=== PATIENT | female | born 1950 | race Caucasian/White ===

== ENCOUNTER 2022-10-30 12:20 | Emergency (ER) | payer OTHER ==
[~2022-10-30] VITALS: Ht 165.1 cm; Wt 105.0 kg
[2022-10-30] MEDS ORDERED: methylPREDNISolone SOD SUCC 125 MG/2 ML VL IM ONE (13:00)
[2022-10-30 13:37] LABS: Basophils # (auto) 0 10 ^3/uL (0-0.2); Basophils % (auto) 0.4 % (0.0-2.0); Eosinophils # (auto) 0.1 10 ^3/uL (0-0.8); Eosinophils % (auto) 1.4 % (0.0-7.0); Hematocrit 35.9 % (36.0-46.0); Hemoglobin 12.1 g/dL (12.2-16.2); Lymphocytes # (auto) 1.5 10 ^3/uL (0.4-5.4); Lymphocytes % (auto) 28.2 % (10.0-50.0); Mean Corpuscular Hgb Conc. 33.6 g/dL (32.0-36.0); Mean Corpuscular Volume 95.3 fL (80.0-100.0); Monocytes # (auto) 0.4 10 ^3/uL (0-1.3); Monocytes % (auto) 7.3 % (0.0-12.0); Neutrophils # (auto) 3.3 10 ^3/uL (1.6-8.6); Neutrophils % (auto) 62.7 % (37.0-80.0); Nucleated Red Blood Cells % 0.1 %; Red Blood Cells 3.77 10^6/uL (4.0-5.20); White Blood Cell 5.3 10^3/uL (4.4-10.8)
[2022-10-30] MEDS ORDERED: cefTRIAXone 1GM/50ML D5W 50 ML IV ONE (13:45)
[2022-10-30] MEDS ORDERED: AZITHROMYCIN 500MG/ 250ML 250 ML IV ONE (13:45)
[2022-10-30 14:09] LABS: Albumin 3.8 g/dL (3.4-5.0); Calcium 8.7 mg/dL (8.5-10.1); Potassium 4.6 mmol/L (3.5-5.1)
[2022-10-30 14:14] LABS: BUN/Creatinine Ratio 18.4; Bilirubin, Total 0.3 mg/dL (0.2-1.0); Total Protein 7.8 g/dL (6.4-8.2)
[2022-10-30] MEDS ORDERED: LEVO-28 PO (14:30)
[2022-10-30] MEDS ORDERED: PRED20TA2 PO (14:30)
[2022-10-30] MEDS ORDERED: methylPREDNISolone SOD SUCC 125 MG/2 ML VL IV ONE (17:15)
[2022-10-30 18:04] VITALS: BP 107/83
== END 2022-10-30 20:37 | disposition home or self-care (01) ==
LOC: ER 12:20
DX: U07.1 COVID-19 (principal); J18.9 Pneumonia, unspecified organism; R07.89 Other chest pain; Z90.49 Acquired absence of other specified parts of digestive tract
CPT/HCPCS: 36415; 71045; 80053; 83880; 84484; 85025; 85379; 87426; 87804; 93005; 96365; 96366; 96368; 96375; 99285; J0456; J0696; J2930

== ENCOUNTER 2022-12-03 09:55 | Inpatient (IN) | payer OTHER ==
[~2022-12-03] VITALS: Ht 165.1 cm; Wt 93.8 kg
[~2022-12-03 09:55] MED LIST: LEVO-28 PO; PRED20TA2 PO
[2022-12-03 11:02] LABS: Basophils # (auto) 0.2 10 ^3/uL (0-0.2); Basophils % (auto) 0.9 % (0.0-2.0); Eosinophils # (auto) 1.3 10 ^3/uL (0-0.8); Eosinophils % (auto) 7.9 % (0.0-7.0); Hematocrit 32.9 % (36.0-46.0); Hemoglobin 10.6 g/dL (12.2-16.2); Lymphocytes % (auto) 11.9 % (10.0-50.0); Mean Corpuscular Hgb Conc. 32.2 g/dL (32.0-36.0); Mean Corpuscular Volume 96.2 fL (80.0-100.0); Monocytes # (auto) 0.8 10 ^3/uL (0-1.3); Monocytes % (auto) 4.7 % (0.0-12.0); Neutrophils # (auto) 12.4 10 ^3/uL (1.6-8.6); Neutrophils % (auto) 74.6 % (37.0-80.0); Red Blood Cells 3.42 10^6/uL (4.0-5.20); Red Cell Distribution Width 13.5 % (11.8-14.3); White Blood Cell 16.5 10^3/uL (4.4-10.8)
[2022-12-03 11:27] LABS: Albumin 3.1 g/dL (3.4-5.0); Calcium 8.5 mg/dL (8.5-10.1); Potassium 3.7 mmol/L (3.5-5.1)
[2022-12-03 11:30] LABS: Bilirubin, Total 0.5 mg/dL (0.2-1.0); Total Protein 7.1 g/dL (6.4-8.2)
[2022-12-03] MEDS ORDERED: FUROSEMIDE 20 MG/2 ML VIAL IV ONE (12:00)
[2022-12-03] MEDS ORDERED: DexAMETHasone SOD PHOS 10MG/1ML VIAL INJ IV ONE (12:00)
[2022-12-03] MEDS ORDERED: IPRATROPIUM BROM 0.5 MG/2.5ML INH SOL NEB ONE (12:00)
[2022-12-03] MEDS ORDERED: VANCOMYCIN 1GM/250ML 250 ML IV ONE (12:00)
[2022-12-03] MEDS ORDERED: ALBUTEROL MEDNEB 2.5 mg/3ml NEB NEB ONE (12:00)
[2022-12-03] MEDS ORDERED: IOHEXOL 350 MG/ML 100ML IJ ONE (12:06)
[2022-12-03] MEDS: MAGNESIUM SULFATE 1GM/100ML 100 ML IV SCH ×2 (12:54→13:58)
[2022-12-03] MEDS: CEFEPIME 1GM/ 50ML 50 ML IV ONE ×2 (14:03→15:11)
[2022-12-03] MEDS ORDERED: VANCOMYCIN PER PHARMACY 0 MG IV SCH (15:45)
[2022-12-03] MEDS ORDERED: methylPREDNISolone SOD SUCC 125 MG/2 ML VL IV ONE (15:45)
[2022-12-03] MEDS ORDERED: hydrALAZINE HCL 20 MG/ML VL IV PRN (15:45)
[2022-12-03] MEDS ORDERED: NITROGLYCERIN 0.4 MG SL TAB SL PRN (15:45)
[2022-12-03 16:00] LABS: Urine Bacteria NONE SEEN /hpf (None Seen); Urine Blood Negative /uL (Negative); Urine Mucus FEW (None Seen); Urine Specific Gravity 1.022 (1.001-1.035); Urine WBC 1 /hpf (0 - 5)
[2022-12-03] MEDS ORDERED: ALBUTEROL MEDNEB 2.5 mg/3ml NEB ONE ×2 (18:07→21:40)
[2022-12-03] MEDS: ALBUTEROL SULF 2.5 MG/0.5ML(0.5%) NEB SOLN NEB SCH ×2 (18:51→22:17)
[2022-12-03] MEDS: PIPERACILLIN-TAZOB 3.375GM 100 ML IV SCH (19:07)
[2022-12-03] MEDS: FUROSEMIDE 40 MG/4 ML VIAL IV SCH (19:07)
[2022-12-03] MEDS ORDERED: METO-281 PO (19:42)
[2022-12-03] MEDS ORDERED: GABA300C10 PO (19:42)
[2022-12-03] MEDS ORDERED: HYDR-4902 PO (19:42)
[2022-12-03] MEDS ORDERED: QUET200T45 PO (19:42)
[2022-12-03] MEDS ORDERED: CLON0.5T10 PO (19:42)
[2022-12-03] MEDS ORDERED: PANT40TA2 PO (19:42)
[2022-12-03] MEDS ORDERED: SERT50TA19 PO (19:42)
[2022-12-03 20:33] VITALS: BP 122/54
[2022-12-03 21:45] VITALS: BP 120/78
[2022-12-03] MEDS: GABAPENTIN 300 MG CAP PO SCH (21:55)
[2022-12-03] MEDS: clonazePAM 0.5 MG TAB PO SCH (21:55)
[2022-12-03] MEDS: QUEtiapine FUMARATE 100 MG TAB PO SCH (21:56)
[2022-12-04] VITALS (7 sets, daily range): BP systolic 95–112; BP diastolic 46–60
[2022-12-04] MEDS: PIPERACILLIN-TAZOB 3.375GM 100 ML IV SCH ×4 (00:41→18:14)
[2022-12-04] MEDS: methylPREDNISolone SOD SUCC 40 MG/ML VL IV SCH ×4 (00:41→18:14)
[2022-12-04] MEDS: clonazePAM 0.5 MG TAB PO SCH ×3 (05:53→21:28)
[2022-12-04] MEDS ORDERED: ALBUTEROL MEDNEB 2.5 mg/3ml NEB ONE ×6 (05:57→22:17)
[2022-12-04] MEDS: FUROSEMIDE 40 MG/4 ML VIAL IV SCH ×3 (06:00→18:55)
[2022-12-04] MEDS: VANCOMYCIN 1GM/250ML 250 ML IV SCH ×2 (06:03→21:28)
[2022-12-04 06:17] LABS: Basophils # (auto) 0 10 ^3/uL (0-0.2); Basophils % (auto) 0.1 % (0.0-2.0); Eosinophils # (auto) 0 10 ^3/uL (0-0.8); Hematocrit 32.2 % (36.0-46.0); Hemoglobin 10.5 g/dL (12.2-16.2); Lymphocytes % (auto) 5.1 % (10.0-50.0); Mean Corpuscular Hemoglobin 31.3 pg (28.0-32.0); Mean Corpuscular Hgb Conc. 32.8 g/dL (32.0-36.0); Mean Corpuscular Volume 95.5 fL (80.0-100.0); Monocytes # (auto) 0.5 10 ^3/uL (0-1.3); Monocytes % (auto) 2.9 % (0.0-12.0); Neutrophils # (auto) 17.1 10 ^3/uL (1.6-8.6); Neutrophils % (auto) 91.9 % (37.0-80.0); Red Blood Cells 3.37 10^6/uL (4.0-5.20); Red Cell Distribution Width 13.4 % (11.8-14.3); White Blood Cell 18.7 10^3/uL (4.4-10.8)
[2022-12-04] MEDS: ALBUTEROL SULF 2.5 MG/0.5ML(0.5%) NEB SOLN NEB SCH ×4 (06:54→18:19)
[2022-12-04 07:59] LABS: Potassium 3.7 mmol/L (3.5-5.1)
[2022-12-04 08:00] LABS: Calcium 8.5 mg/dL (8.5-10.1)
[2022-12-04] MEDS ORDERED: ALBUTEROL SULF 2.5 MG/0.5ML(0.5%) NEB SOLN NEB PRN (08:45)
[2022-12-04] MEDS: SERTRALINE HCL 50 MG TAB PO SCH (09:37)
[2022-12-04] MEDS: guaiFENesin 200 MG/10 ML UD GT PRN ×2 (09:37→22:08)
[2022-12-04] MEDS: ENOXAPARIN SOD 40 MG/0.4 ML SYRINGE SC SCH (09:37)
[2022-12-04] MEDS ORDERED: QUEtiapine FUMARATE 100 MG TAB PO SCH (10:00)
[2022-12-04] MEDS ORDERED: GABAPENTIN 300 MG CAP PO SCH (10:00)
[2022-12-04] MEDS ORDERED: methylPREDNISolone SOD SUCC 125 MG/2 ML VL IV ONE (18:30)
[2022-12-04] MEDS: QUEtiapine FUMARATE 100 MG TAB PO SCH (21:28)
[2022-12-04] MEDS: GABAPENTIN 300 MG CAP PO SCH (21:28)
[2022-12-04] MEDS ORDERED: ONDANSETRON HCL 4 MG/2 ML VIAL IV PRN (22:00)
[2022-12-05] VITALS (8 sets, daily range): BP systolic 91–125; BP diastolic 54–80
[2022-12-05] MEDS: ALBUTEROL SULF 2.5 MG/0.5ML(0.5%) NEB SOLN NEB SCH ×6 (00:14→21:28)
[2022-12-05] MEDS: PIPERACILLIN-TAZOB 3.375GM 100 ML IV SCH ×4 (00:18→17:39)
[2022-12-05] MEDS: methylPREDNISolone SOD SUCC 125 MG/2 ML VL IV SCH ×4 (00:19→17:38)
[2022-12-05] MEDS: clonazePAM 0.5 MG TAB PO SCH ×3 (05:28→21:13)
[2022-12-05] MEDS ORDERED: ALBUTEROL MEDNEB 2.5 mg/3ml NEB ONE ×5 (06:13→21:14)
[2022-12-05 06:17] LABS: Basophils # (auto) 0.1 10 ^3/uL (0-0.2); Basophils % (auto) 0.3 % (0.0-2.0); Eosinophils # (auto) 0 10 ^3/uL (0-0.8); Eosinophils % (auto) 0.1 % (0.0-7.0); Hematocrit 33.5 % (36.0-46.0); Hemoglobin 10.7 g/dL (12.2-16.2); Lymphocytes # (auto) 1.1 10 ^3/uL (0.4-5.4); Lymphocytes % (auto) 4.3 % (10.0-50.0); Mean Corpuscular Hemoglobin 30.6 pg (28.0-32.0); Mean Corpuscular Volume 95.7 fL (80.0-100.0); Monocytes # (auto) 0.7 10 ^3/uL (0-1.3); Monocytes % (auto) 2.9 % (0.0-12.0); Neutrophils # (auto) 22.5 10 ^3/uL (1.6-8.6); Neutrophils % (auto) 92.4 % (37.0-80.0); Nucleated Red Blood Cells % 0.1 %; Red Cell Distribution Width 13.7 % (11.8-14.3); White Blood Cell 24.4 10^3/uL (4.4-10.8)
[2022-12-05 06:36] LABS: BUN/Creatinine Ratio 29.5; Calcium 9.8 mg/dL (8.5-10.1)
[2022-12-05] MEDS: ENOXAPARIN SOD 40 MG/0.4 ML SYRINGE SC SCH (10:14)
[2022-12-05] MEDS: SERTRALINE HCL 50 MG TAB PO SCH (10:14)
[2022-12-05] MEDS: VANCOMYCIN 1GM/250ML 250 ML IV SCH (14:06)
[2022-12-05] MEDS: FUROSEMIDE 40 MG/4 ML VIAL IV SCH (17:38)
[2022-12-05] MEDS: QUEtiapine FUMARATE 100 MG TAB PO SCH (21:13)
[2022-12-05] MEDS: GABAPENTIN 300 MG CAP PO SCH (21:13)
[2022-12-06] VITALS (12 sets, daily range): BP systolic 88–135; BP diastolic 40–74
[2022-12-06] MEDS: methylPREDNISolone SOD SUCC 125 MG/2 ML VL IV SCH ×4 (00:25→18:07)
[2022-12-06] MEDS: PIPERACILLIN-TAZOB 3.375GM 100 ML IV SCH ×4 (00:31→18:07)
[2022-12-06] MEDS: VANCOMYCIN 1GM/250ML 250 ML IV SCH (05:11)
[2022-12-06] MEDS: FUROSEMIDE 40 MG/4 ML VIAL IV SCH ×2 (05:12→18:08)
[2022-12-06] MEDS: clonazePAM 0.5 MG TAB PO SCH ×3 (05:13→21:50)
[2022-12-06 06:34] LABS: Basophils # (auto) 0 10 ^3/uL (0-0.2); Basophils % (auto) 0.2 % (0.0-2.0); Eosinophils # (auto) 0 10 ^3/uL (0-0.8); Hematocrit 33.1 % (36.0-46.0); Hemoglobin 10.6 g/dL (12.2-16.2); Lymphocytes # (auto) 1.5 10 ^3/uL (0.4-5.4); Lymphocytes % (auto) 6.8 % (10.0-50.0); Mean Corpuscular Hemoglobin 30.7 pg (28.0-32.0); Mean Corpuscular Volume 95.9 fL (80.0-100.0); Monocytes # (auto) 1.2 10 ^3/uL (0-1.3); Monocytes % (auto) 5.4 % (0.0-12.0); Neutrophils # (auto) 19.2 10 ^3/uL (1.6-8.6); Neutrophils % (auto) 87.6 % (37.0-80.0); Red Blood Cells 3.45 10^6/uL (4.0-5.20); Red Cell Distribution Width 13.6 % (11.8-14.3); White Blood Cell 21.9 10^3/uL (4.4-10.8)
[2022-12-06 06:42] LABS: BUN/Creatinine Ratio 41.9; Calcium 9.9 mg/dL (8.5-10.1); Potassium 3.7 mmol/L (3.5-5.1)
[2022-12-06] MEDS: ALBUTEROL SULF 2.5 MG/0.5ML(0.5%) NEB SOLN NEB SCH ×5 (07:19→22:21)
[2022-12-06] MEDS ORDERED: ALBUTEROL MEDNEB 2.5 mg/3ml NEB ONE ×5 (07:19→21:56)
[2022-12-06] MEDS: guaiFENesin 200 MG/10 ML UD GT PRN (09:28)
[2022-12-06] MEDS: ENOXAPARIN SOD 40 MG/0.4 ML SYRINGE SC SCH (09:28)
[2022-12-06] MEDS: SERTRALINE HCL 50 MG TAB PO SCH (09:28)
[2022-12-06] MEDS: LORazepam 2MG/ML-1ML VIAL IV PRN (12:00)
[2022-12-06] MEDS: ACETAMINOPHEN 325 MG TAB PO PRN (18:44)
[2022-12-06] MEDS: QUEtiapine FUMARATE 100 MG TAB PO SCH (21:51)
[2022-12-06] MEDS: GABAPENTIN 300 MG CAP PO SCH (21:51)
[2022-12-07] VITALS (30 sets, daily range): BP systolic 15–140; BP diastolic 41–76
[2022-12-07] MEDS: VANCOMYCIN 1GM/250ML 250 ML IV SCH ×3 (00:15→18:33)
[2022-12-07] MEDS: methylPREDNISolone SOD SUCC 125 MG/2 ML VL IV SCH ×5 (00:16→23:31)
[2022-12-07] MEDS: PIPERACILLIN-TAZOB 3.375GM 100 ML IV SCH ×5 (00:16→23:32)
[2022-12-07] MEDS ORDERED: ALBUTEROL MEDNEB 2.5 mg/3ml NEB ONE ×5 (05:25→22:01)
[2022-12-07] MEDS: ALBUTEROL SULF 2.5 MG/0.5ML(0.5%) NEB SOLN NEB SCH ×5 (05:48→22:16)
[2022-12-07] MEDS: FUROSEMIDE 40 MG/4 ML VIAL IV SCH ×2 (06:04→18:32)
[2022-12-07 06:05] LABS: Basophils # (auto) 0.1 10 ^3/uL (0-0.2); Basophils % (auto) 0.3 % (0.0-2.0); Eosinophils # (auto) 0 10 ^3/uL (0-0.8); Hematocrit 32.6 % (36.0-46.0); Hemoglobin 10.6 g/dL (12.2-16.2); Lymphocytes # (auto) 1.5 10 ^3/uL (0.4-5.4); Lymphocytes % (auto) 8.4 % (10.0-50.0); Mean Corpuscular Hemoglobin 30.4 pg (28.0-32.0); Mean Corpuscular Hgb Conc. 32.7 g/dL (32.0-36.0); Monocytes # (auto) 1.1 10 ^3/uL (0-1.3); Monocytes % (auto) 6.2 % (0.0-12.0); Neutrophils # (auto) 15.5 10 ^3/uL (1.6-8.6); Neutrophils % (auto) 85.1 % (37.0-80.0); Nucleated Red Blood Cells % 0.1 %; Red Cell Distribution Width 13.4 % (11.8-14.3); White Blood Cell 18.2 10^3/uL (4.4-10.8)
[2022-12-07] MEDS: clonazePAM 0.5 MG TAB PO SCH ×3 (06:10→20:32)
[2022-12-07 06:24] LABS: Calcium 9.5 mg/dL (8.5-10.1)
[2022-12-07 06:26] LABS: BUN/Creatinine Ratio 50.5
[2022-12-07] MEDS: ENOXAPARIN SOD 40 MG/0.4 ML SYRINGE SC SCH (09:44)
[2022-12-07] MEDS: SERTRALINE HCL 50 MG TAB PO SCH (09:46)
[2022-12-07] MEDS ORDERED: IPRATROPIUM BROM 0.5 MG/2.5ML INH SOL ONE (18:39)
[2022-12-07] MEDS: QUEtiapine FUMARATE 100 MG TAB PO SCH (20:32)
[2022-12-07] MEDS: GABAPENTIN 300 MG CAP PO SCH (20:32)
[2022-12-08] VITALS (30 sets, daily range): BP systolic 85–135; BP diastolic 51–84
[2022-12-08] MEDS: PIPERACILLIN-TAZOB 3.375GM 100 ML IV SCH ×3 (05:40→18:11)
[2022-12-08] MEDS: methylPREDNISolone SOD SUCC 125 MG/2 ML VL IV SCH ×3 (05:40→18:10)
[2022-12-08] MEDS: FUROSEMIDE 40 MG/4 ML VIAL IV SCH ×2 (05:40→18:10)
[2022-12-08] MEDS: clonazePAM 0.5 MG TAB PO SCH ×3 (05:41→21:46)
[2022-12-08] MEDS ORDERED: ALBUTEROL MEDNEB 2.5 mg/3ml NEB ONE ×3 (05:46→13:21)
[2022-12-08 05:51] LABS: Basophils # (auto) 0.1 10 ^3/uL (0-0.2); Basophils % (auto) 0.3 % (0.0-2.0); Eosinophils # (auto) 0 10 ^3/uL (0-0.8); Hematocrit 35.7 % (36.0-46.0); Hemoglobin 11.7 g/dL (12.2-16.2); Lymphocytes # (auto) 1.9 10 ^3/uL (0.4-5.4); Mean Corpuscular Hemoglobin 30.2 pg (28.0-32.0); Mean Corpuscular Hgb Conc. 32.7 g/dL (32.0-36.0); Mean Corpuscular Volume 92.5 fL (80.0-100.0); Monocytes # (auto) 1.1 10 ^3/uL (0-1.3); Monocytes % (auto) 5.7 % (0.0-12.0); Neutrophils # (auto) 15.7 10 ^3/uL (1.6-8.6); Red Blood Cells 3.86 10^6/uL (4.0-5.20); Red Cell Distribution Width 13.4 % (11.8-14.3); White Blood Cell 18.7 10^3/uL (4.4-10.8)
[2022-12-08 06:13] LABS: Calcium 9.3 mg/dL (8.5-10.1)
[2022-12-08 06:15] LABS: BUN/Creatinine Ratio 47.6
[2022-12-08] MEDS: ALBUTEROL SULF 2.5 MG/0.5ML(0.5%) NEB SOLN NEB SCH ×3 (06:15→13:22)
[2022-12-08] MEDS: VANCOMYCIN 1GM/250ML 250 ML IV SCH (09:32)
[2022-12-08] MEDS: SERTRALINE HCL 50 MG TAB PO SCH (09:32)
[2022-12-08] MEDS: ENOXAPARIN SOD 40 MG/0.4 ML SYRINGE SC SCH (09:33)
[2022-12-08] MEDS: ALBUTEROL MEDNEB 2.5 mg/3ml NEB NEB SCH ×4 (14:00→22:12)
[2022-12-08] MEDS ORDERED: ALBUTEROL MEDNEB 2.5 mg/3ml NEB NEB PRN (14:00)
[2022-12-08] MEDS: guaiFENesin 200 MG/10 ML UD GT PRN (20:44)
[2022-12-08] MEDS: QUEtiapine FUMARATE 100 MG TAB PO SCH (21:45)
[2022-12-08] MEDS: GABAPENTIN 300 MG CAP PO SCH (21:45)
[2022-12-09] VITALS (32 sets, daily range): BP systolic 93–125; BP diastolic 54–85
[2022-12-09] MEDS: methylPREDNISolone SOD SUCC 125 MG/2 ML VL IV SCH ×4 (00:09→18:13)
[2022-12-09] MEDS: PIPERACILLIN-TAZOB 3.375GM 100 ML IV SCH ×4 (00:09→18:13)
[2022-12-09] MEDS: VANCOMYCIN 1GM/250ML 250 ML IV SCH (01:28)
[2022-12-09] MEDS: LORazepam 2MG/ML-1ML VIAL IV PRN ×2 (05:00→13:55)
[2022-12-09 05:19] LABS: Basophils # (auto) 0.1 10 ^3/uL (0-0.2); Basophils % (auto) 0.3 % (0.0-2.0); Eosinophils # (auto) 0 10 ^3/uL (0-0.8); Lymphocytes # (auto) 1.8 10 ^3/uL (0.4-5.4); Lymphocytes % (auto) 9.9 % (10.0-50.0); Mean Corpuscular Volume 91.9 fL (80.0-100.0); Neutrophils # (auto) 15.7 10 ^3/uL (1.6-8.6); White Blood Cell 18.6 10^3/uL (4.4-10.8)
[2022-12-09 05:20] LABS: Hematocrit 34.6 % (36.0-46.0); Hemoglobin 11.6 g/dL (12.2-16.2); Mean Corpuscular Hemoglobin 30.8 pg (28.0-32.0); Mean Corpuscular Hgb Conc. 33.6 g/dL (32.0-36.0); Monocytes # (auto) 0.9 10 ^3/uL (0-1.3); Monocytes % (auto) 5.1 % (0.0-12.0); Neutrophils % (auto) 84.7 % (37.0-80.0); Red Blood Cells 3.77 10^6/uL (4.0-5.20); Red Cell Distribution Width 13.6 % (11.8-14.3)
[2022-12-09 05:38] LABS: BUN/Creatinine Ratio 40.9; Calcium 9.3 mg/dL (8.5-10.1); Potassium 3.2 mmol/L (3.5-5.1)
[2022-12-09] MEDS: clonazePAM 0.5 MG TAB PO SCH ×3 (06:09→21:29)
[2022-12-09] MEDS: FUROSEMIDE 40 MG/4 ML VIAL IV SCH ×2 (06:10→18:14)
[2022-12-09] MEDS: guaiFENesin 200 MG/10 ML UD GT PRN ×2 (06:21→20:30)
[2022-12-09] MEDS: ALBUTEROL MEDNEB 2.5 mg/3ml NEB NEB SCH ×6 (06:38→22:01)
[2022-12-09] MEDS: POTASSIUM CHL 20MEQ/100ML 100 ML IV SCH ×2 (06:40→08:35)
[2022-12-09] MEDS: ACETAMINOPHEN 325 MG TAB PO PRN (08:52)
[2022-12-09] MEDS: ENOXAPARIN SOD 40 MG/0.4 ML SYRINGE SC SCH (10:26)
[2022-12-09] MEDS: SERTRALINE HCL 50 MG TAB PO SCH (10:26)
[2022-12-09] MEDS ORDERED: SODIUM CHL 3% HYPERTONIC 500 ML BAG IN ONE (14:00)
[2022-12-09] MEDS: AZITHROMYCIN 500MG/ 250ML 250 ML IV SCH (15:14)
[2022-12-09] MEDS: GABAPENTIN 300 MG CAP PO SCH (21:29)
[2022-12-09] MEDS: QUEtiapine FUMARATE 100 MG TAB PO SCH (21:29)
[2022-12-10] VITALS (26 sets, daily range): BP systolic 86–129; BP diastolic 41–88
[2022-12-10 05:26] LABS: Basophils # (auto) 0.1 10 ^3/uL (0-0.2); Eosinophils # (auto) 0 10 ^3/uL (0-0.8); Eosinophils % (auto) 0.1 % (0.0-7.0); Monocytes # (auto) 1.2 10 ^3/uL (0-1.3)
[2022-12-10 05:29] LABS: Basophils % (auto) 0.3 % (0.0-2.0); Hematocrit 35.6 % (36.0-46.0); Hemoglobin 11.8 g/dL (12.2-16.2); Lymphocytes % (auto) 8.2 % (10.0-50.0); Mean Corpuscular Hemoglobin 30.6 pg (28.0-32.0); Mean Corpuscular Hgb Conc. 33.2 g/dL (32.0-36.0); Mean Corpuscular Volume 92.1 fL (80.0-100.0); Monocytes % (auto) 5.2 % (0.0-12.0); Neutrophils # (auto) 20.4 10 ^3/uL (1.6-8.6); Neutrophils % (auto) 86.2 % (37.0-80.0); Red Blood Cells 3.87 10^6/uL (4.0-5.20); Red Cell Distribution Width 13.4 % (11.8-14.3); White Blood Cell 23.7 10^3/uL (4.4-10.8)
[2022-12-10 05:40] LABS: BUN/Creatinine Ratio 37.2; Calcium 9.1 mg/dL (8.5-10.1); Potassium 3.8 mmol/L (3.5-5.1)
[2022-12-10] MEDS: methylPREDNISolone SOD SUCC 125 MG/2 ML VL IV SCH ×4 (06:12→17:54)
[2022-12-10] MEDS: PIPERACILLIN-TAZOB 3.375GM 100 ML IV SCH ×4 (06:12→17:54)
[2022-12-10] MEDS: clonazePAM 0.5 MG TAB PO SCH ×3 (06:12→20:09)
[2022-12-10] MEDS: FUROSEMIDE 40 MG/4 ML VIAL IV SCH ×2 (06:12→17:54)
[2022-12-10] MEDS: ALBUTEROL MEDNEB 2.5 mg/3ml NEB NEB SCH ×5 (06:46→22:24)
[2022-12-10] MEDS: ENOXAPARIN SOD 40 MG/0.4 ML SYRINGE SC SCH (09:21)
[2022-12-10] MEDS: SERTRALINE HCL 50 MG TAB PO SCH (09:21)
[2022-12-10] MEDS: AZITHROMYCIN 500MG/ 250ML 250 ML IV SCH (09:22)
[2022-12-10] MEDS: ACETAMINOPHEN 325 MG TAB PO PRN ×2 (10:25→20:10)
[2022-12-10] MEDS: LORazepam 2MG/ML-1ML VIAL IV PRN (11:21)
[2022-12-10] MEDS: GABAPENTIN 300 MG CAP PO SCH (20:09)
[2022-12-10] MEDS: QUEtiapine FUMARATE 100 MG TAB PO SCH (20:09)
[2022-12-10] MEDS: guaiFENesin 200 MG/10 ML UD GT PRN (20:10)
[2022-12-11] VITALS (23 sets, daily range): BP systolic 77–142; BP diastolic 44–80
[2022-12-11] MEDS: methylPREDNISolone SOD SUCC 125 MG/2 ML VL IV SCH ×4 (01:34→18:16)
[2022-12-11] MEDS: PIPERACILLIN-TAZOB 3.375GM 100 ML IV SCH ×4 (01:35→18:16)
[2022-12-11] MEDS: guaiFENesin 200 MG/10 ML UD GT PRN ×4 (01:40→18:28)
[2022-12-11 05:51] LABS: Basophils # (auto) 0.1 10 ^3/uL (0-0.2); Basophils % (auto) 0.3 % (0.0-2.0); Eosinophils # (auto) 0 10 ^3/uL (0-0.8); Eosinophils % (auto) 0.1 % (0.0-7.0); Hematocrit 37.5 % (36.0-46.0); Hemoglobin 12.1 g/dL (12.2-16.2); Lymphocytes # (auto) 1.8 10 ^3/uL (0.4-5.4); Lymphocytes % (auto) 7.1 % (10.0-50.0); Mean Corpuscular Hemoglobin 30.4 pg (28.0-32.0); Mean Corpuscular Hgb Conc. 32.3 g/dL (32.0-36.0); Mean Corpuscular Volume 94.1 fL (80.0-100.0); Monocytes # (auto) 1.3 10 ^3/uL (0-1.3); Monocytes % (auto) 5.2 % (0.0-12.0); Neutrophils # (auto) 22.4 10 ^3/uL (1.6-8.6); Neutrophils % (auto) 87.3 % (37.0-80.0); Nucleated Red Blood Cells % 0.1 %; Red Blood Cells 3.98 10^6/uL (4.0-5.20); Red Cell Distribution Width 13.5 % (11.8-14.3); White Blood Cell 25.7 10^3/uL (4.4-10.8)
[2022-12-11] MEDS: ALBUTEROL MEDNEB 2.5 mg/3ml NEB NEB SCH ×5 (06:05→22:55)
[2022-12-11] MEDS: FUROSEMIDE 40 MG/4 ML VIAL IV SCH ×2 (06:08→18:15)
[2022-12-11] MEDS: clonazePAM 0.5 MG TAB PO SCH ×3 (06:08→20:27)
[2022-12-11 06:24] LABS: Potassium 3.9 mmol/L (3.5-5.1)
[2022-12-11 06:30] LABS: BUN/Creatinine Ratio 55.4; Calcium 9.1 mg/dL (8.5-10.1)
[2022-12-11 08:57] LABS: Mean Corpuscular Hemoglobin 29.7 pg (28.0-32.0)
[2022-12-11 08:59] LABS: Hematocrit 36.9 % (36.0-46.0); Mean Corpuscular Hgb Conc. 32.5 g/dL (32.0-36.0); Mean Corpuscular Volume 91.4 fL (80.0-100.0); Red Blood Cells 4.04 10^6/uL (4.0-5.20); Red Cell Distribution Width 13.5 % (11.8-14.3)
[2022-12-11 09:13] LABS: Basophils % (manual) 0 (0.0-2.0); Blast Cells 0; Eosinophils % (manual) 0 (0-7); Metamyelocytes % 0; Myelocytes % 0; Promyelocytes % 0; Reactive Lymphocytes 0
[2022-12-11 09:23] LABS: Albumin 2.9 g/dL (3.4-5.0); Calcium 9.1 mg/dL (8.5-10.1); Potassium 3.3 mmol/L (3.5-5.1)
[2022-12-11 09:27] LABS: BUN/Creatinine Ratio 47.3; Bilirubin, Total 0.5 mg/dL (0.2-1.0); Total Protein 7.9 g/dL (6.4-8.2)
[2022-12-11 10:16] LABS: Band Neutrophils % (manual) 9; Lymphocytes % (manual) 9 (10.0-50.0); Monocytes % (manual) 4 (0-12)
[2022-12-11] MEDS: ENOXAPARIN SOD 40 MG/0.4 ML SYRINGE SC SCH (10:44)
[2022-12-11] MEDS: SERTRALINE HCL 50 MG TAB PO SCH (10:45)
[2022-12-11] MEDS: AZITHROMYCIN 500MG/ 250ML 250 ML IV SCH (10:45)
[2022-12-11] MEDS: LORazepam 2MG/ML-1ML VIAL IV PRN (10:50)
[2022-12-11] MEDS: ACETAMINOPHEN 325 MG TAB PO PRN (20:25)
[2022-12-11] MEDS: GABAPENTIN 300 MG CAP PO SCH (20:25)
[2022-12-11] MEDS: QUEtiapine FUMARATE 100 MG TAB PO SCH (20:27)
[2022-12-12] VITALS (26 sets, daily range): BP systolic 73–160; BP diastolic 44–92
[2022-12-12] MEDS: methylPREDNISolone SOD SUCC 125 MG/2 ML VL IV SCH ×4 (00:59→18:12)
[2022-12-12] MEDS: guaiFENesin 200 MG/10 ML UD GT PRN ×3 (00:59→20:45)
[2022-12-12] MEDS: PIPERACILLIN-TAZOB 3.375GM 100 ML IV SCH ×4 (01:00→18:12)
[2022-12-12 05:21] LABS: Basophils # (auto) 0 10 ^3/uL (0-0.2); Basophils % (auto) 0.2 % (0.0-2.0); Eosinophils # (auto) 0 10 ^3/uL (0-0.8); Eosinophils % (auto) 0.1 % (0.0-7.0); Hematocrit 34.7 % (36.0-46.0); Hemoglobin 11.4 g/dL (12.2-16.2); Lymphocytes # (auto) 1.5 10 ^3/uL (0.4-5.4); Lymphocytes % (auto) 6.8 % (10.0-50.0); Mean Corpuscular Hemoglobin 29.9 pg (28.0-32.0); Mean Corpuscular Hgb Conc. 32.8 g/dL (32.0-36.0); Monocytes % (auto) 4.5 % (0.0-12.0); Neutrophils # (auto) 20.2 10 ^3/uL (1.6-8.6); Neutrophils % (auto) 88.4 % (37.0-80.0); Nucleated Red Blood Cells % 0.1 %; Red Blood Cells 3.81 10^6/uL (4.0-5.20); White Blood Cell 22.9 10^3/uL (4.4-10.8)
[2022-12-12 06:09] LABS: Calcium 9.2 mg/dL (8.5-10.1); Potassium 3.3 mmol/L (3.5-5.1)
[2022-12-12] MEDS: ALBUTEROL MEDNEB 2.5 mg/3ml NEB NEB SCH ×5 (06:09→23:18)
[2022-12-12 06:11] LABS: BUN/Creatinine Ratio 65.6
[2022-12-12] MEDS: clonazePAM 0.5 MG TAB PO SCH ×3 (07:02→20:45)
[2022-12-12] MEDS: FUROSEMIDE 40 MG/4 ML VIAL IV SCH ×2 (07:02→18:12)
[2022-12-12] MEDS: AZITHROMYCIN 500MG/ 250ML 250 ML IV SCH (10:10)
[2022-12-12] MEDS: ENOXAPARIN SOD 40 MG/0.4 ML SYRINGE SC SCH (10:10)
[2022-12-12] MEDS: LORazepam 2MG/ML-1ML VIAL IV PRN (10:24)
[2022-12-12] MEDS ORDERED: DEXTROSE (50%) 50ML SYRG IV PRN (10:45)
[2022-12-12] MEDS: SERTRALINE HCL 50 MG TAB PO SCH (10:47)
[2022-12-12] MEDS: ACCU-CHEK COMFORT CURVE STRIP VI SCH ×3 (12:30→22:00)
[2022-12-12] MEDS: InsuLIN REG 1unit/0.01ml Soln (100units/ml) SC SCH ×3 (12:52→22:00)
[2022-12-12] MEDS ORDERED: POTASSIUM CHL 20MEQ/100ML 100 ML IV ONE (13:30)
[2022-12-12] MEDS: MORPHINE SULFATE INJ 2 MG/ml SYRG IV PRN (15:22)
[2022-12-12] MEDS: Ensure HIGH Protein Chocolate 8oz Bottle PO SCH (18:32)
[2022-12-12] MEDS: GABAPENTIN 300 MG CAP PO SCH (20:44)
[2022-12-12] MEDS: ACETAMINOPHEN 325 MG TAB PO PRN (20:44)
[2022-12-12] MEDS: QUEtiapine FUMARATE 100 MG TAB PO SCH (20:44)
[2022-12-13] VITALS (32 sets, daily range): BP systolic 79–113; BP diastolic 31–86
[2022-12-13 05:52] LABS: Hematocrit 32.3 % (36.0-46.0); Hemoglobin 10.6 g/dL (12.2-16.2); Mean Corpuscular Hemoglobin 29.9 pg (28.0-32.0); Mean Corpuscular Hgb Conc. 32.8 g/dL (32.0-36.0); Mean Corpuscular Volume 91.4 fL (80.0-100.0); Red Blood Cells 3.54 10^6/uL (4.0-5.20); Red Cell Distribution Width 13.3 % (11.8-14.3); White Blood Cell 25.4 10^3/uL (4.4-10.8)
[2022-12-13 06:03] LABS: Basophils % (manual) 0 (0.0-2.0); Blast Cells 0; Eosinophils % (manual) 0 (0-7); Metamyelocytes % 0; Myelocytes % 0; Promyelocytes % 0; Reactive Lymphocytes 0
[2022-12-13 06:15] LABS: Albumin 2.5 g/dL (3.4-5.0); BUN/Creatinine Ratio 56.1
[2022-12-13 06:18] LABS: Bilirubin, Total 0.3 mg/dL (0.2-1.0); Total Protein 6.9 g/dL (6.4-8.2)
[2022-12-13] MEDS: ALBUTEROL MEDNEB 2.5 mg/3ml NEB NEB SCH ×5 (06:32→23:25)
[2022-12-13] MEDS: guaiFENesin 200 MG/10 ML UD GT PRN ×2 (06:45→22:31)
[2022-12-13] MEDS: methylPREDNISolone SOD SUCC 125 MG/2 ML VL IV SCH ×4 (06:45→18:18)
[2022-12-13] MEDS: FUROSEMIDE 40 MG/4 ML VIAL IV SCH ×2 (06:45→18:00)
[2022-12-13] MEDS: clonazePAM 0.5 MG TAB PO SCH ×3 (06:45→21:42)
[2022-12-13] MEDS: PIPERACILLIN-TAZOB 3.375GM 100 ML IV SCH ×5 (06:46→18:40)
[2022-12-13 06:50] LABS: Potassium 2.8 mmol/L (3.5-5.1)
[2022-12-13] MEDS: ACCU-CHEK COMFORT CURVE STRIP VI SCH ×4 (07:00→22:24)
[2022-12-13 07:57] LABS: Band Neutrophils % (manual) 10; Lymphocytes % (manual) 10 (10.0-50.0); Monocytes % (manual) 4 (0-12)
[2022-12-13] MEDS: Ensure HIGH Protein Chocolate 8oz Bottle PO SCH ×3 (08:30→19:54)
[2022-12-13] MEDS: InsuLIN REG 1unit/0.01ml Soln (100units/ml) SC SCH ×4 (08:47→22:25)
[2022-12-13] MEDS: LORazepam 2MG/ML-1ML VIAL IV PRN (10:04)
[2022-12-13] MEDS: AZITHROMYCIN 500MG/ 250ML 250 ML IV SCH (10:05)
[2022-12-13] MEDS: POTASSIUM CHL 20MEQ/100ML 100 ML IV SCH ×2 (10:05→12:32)
[2022-12-13] MEDS: ENOXAPARIN SOD 40 MG/0.4 ML SYRINGE SC SCH (10:06)
[2022-12-13] MEDS: SERTRALINE HCL 50 MG TAB PO SCH (10:19)
[2022-12-13] MEDS: MORPHINE SULFATE INJ 2 MG/ml SYRG IV PRN (16:46)
[2022-12-13] MEDS: GABAPENTIN 300 MG CAP PO SCH (21:41)
[2022-12-13] MEDS: QUEtiapine FUMARATE 100 MG TAB PO SCH (21:42)
[2022-12-13] MEDS: ENOXAPARIN SOD 80 MG/0.8ML SYRINGE SC SCH (21:44)
[2022-12-14] VITALS (31 sets, daily range): BP systolic 77–109; BP diastolic 35–69
[2022-12-14] MEDS: PIPERACILLIN-TAZOB 3.375GM 100 ML IV SCH ×5 (00:01→23:40)
[2022-12-14] MEDS: methylPREDNISolone SOD SUCC 125 MG/2 ML VL IV SCH ×5 (00:01→23:39)
[2022-12-14] MEDS: clonazePAM 0.5 MG TAB PO SCH (05:57)
[2022-12-14] MEDS: FUROSEMIDE 40 MG/4 ML VIAL IV SCH ×2 (06:00→18:00)
[2022-12-14 06:06] LABS: Mean Corpuscular Hemoglobin 30.5 pg (28.0-32.0); Mean Corpuscular Hgb Conc. 33.4 g/dL (32.0-36.0); Mean Corpuscular Volume 91.2 fL (80.0-100.0); Red Blood Cells 3.29 10^6/uL (4.0-5.20); Red Cell Distribution Width 13.5 % (11.8-14.3)
[2022-12-14] MEDS: ALBUTEROL MEDNEB 2.5 mg/3ml NEB NEB SCH ×5 (06:11→22:34)
[2022-12-14 06:18] LABS: Calcium 8.9 mg/dL (8.5-10.1); Potassium 3.4 mmol/L (3.5-5.1)
[2022-12-14 06:20] LABS: BUN/Creatinine Ratio 60.7
[2022-12-14 06:45] LABS: White Blood Cell 30.9 10^3/uL (4.4-10.8)
[2022-12-14 06:46] LABS: Basophils % (manual) 0 (0.0-2.0); Blast Cells 0; Eosinophils % (manual) 0 (0-7); Myelocytes % 0; Promyelocytes % 0; Reactive Lymphocytes 0
[2022-12-14] MEDS: InsuLIN REG 1unit/0.01ml Soln (100units/ml) SC SCH ×4 (07:03→22:11)
[2022-12-14] MEDS: ACCU-CHEK COMFORT CURVE STRIP VI SCH ×4 (07:03→22:09)
[2022-12-14 07:55] LABS: Band Neutrophils % (manual) 9; Lymphocytes % (manual) 8 (10.0-50.0); Metamyelocytes % 2; Monocytes % (manual) 6 (0-12)
[2022-12-14] MEDS: LORazepam 2MG/ML-1ML VIAL IV PRN ×2 (09:00→20:03)
[2022-12-14] MEDS: Ensure HIGH Protein Chocolate 8oz Bottle PO SCH ×3 (09:00→18:43)
[2022-12-14] MEDS: ENOXAPARIN SOD 80 MG/0.8ML SYRINGE SC SCH ×2 (09:02→22:09)
[2022-12-14] MEDS: AZITHROMYCIN 500MG/ 250ML 250 ML IV SCH (09:02)
[2022-12-14] MEDS: SERTRALINE HCL 50 MG TAB PO SCH (11:38)
[2022-12-14] MEDS: guaiFENesin 200 MG/10 ML UD GT PRN (11:38)
[2022-12-14] MEDS: MULTIPLE VITAMIN TAB PO SCH (11:38)
[2022-12-14] MEDS ORDERED: POTASSIUM CHL 20MEQ/100ML 100 ML IV ONE (12:30)
[2022-12-14] MEDS ORDERED: ALPRAZolam 0.5 MG TAB PO ONE (12:30)
[2022-12-14] MEDS: MORPHINE SULFATE INJ 2 MG/ml SYRG IV PRN (14:02)
[2022-12-14] MEDS: QUEtiapine FUMARATE 100 MG TAB PO SCH (22:09)
[2022-12-14] MEDS: GABAPENTIN 300 MG CAP PO SCH (22:09)
[2022-12-14] MEDS: ALPRAZolam 0.5 MG TAB PO SCH (22:09)
[2022-12-15] VITALS (36 sets, daily range): BP systolic 77–104; BP diastolic 43–77
[2022-12-15] MEDS: LORazepam 2MG/ML-1ML VIAL IV PRN ×2 (05:25→14:01)
[2022-12-15 05:39] LABS: Hematocrit 25.5 % (36.0-46.0); Hemoglobin 8.4 g/dL (12.2-16.2); Mean Corpuscular Hemoglobin 29.9 pg (28.0-32.0); Mean Corpuscular Hgb Conc. 32.9 g/dL (32.0-36.0); Mean Corpuscular Volume 90.9 fL (80.0-100.0); Red Cell Distribution Width 13.3 % (11.8-14.3); White Blood Cell 27.6 10^3/uL (4.4-10.8)
[2022-12-15] MEDS: FUROSEMIDE 40 MG/4 ML VIAL IV SCH ×2 (05:42→17:42)
[2022-12-15 05:44] LABS: Basophils % (manual) 0 (0.0-2.0); Blast Cells 0; Metamyelocytes % 0; Myelocytes % 0; Promyelocytes % 0; Reactive Lymphocytes 0
[2022-12-15] MEDS: PIPERACILLIN-TAZOB 3.375GM 100 ML IV SCH (05:46)
[2022-12-15] MEDS: methylPREDNISolone SOD SUCC 125 MG/2 ML VL IV SCH (05:46)
[2022-12-15 05:58] LABS: Potassium 3.3 mmol/L (3.5-5.1)
[2022-12-15 06:10] LABS: Calcium 8.8 mg/dL (8.5-10.1)
[2022-12-15] MEDS: ALBUTEROL MEDNEB 2.5 mg/3ml NEB NEB SCH ×5 (06:19→22:10)
[2022-12-15] MEDS: InsuLIN REG 1unit/0.01ml Soln (100units/ml) SC SCH ×4 (06:30→22:07)
[2022-12-15] MEDS: ACCU-CHEK COMFORT CURVE STRIP VI SCH ×4 (06:30→22:06)
[2022-12-15 07:04] LABS: Band Neutrophils % (manual) 6; Eosinophils % (manual) 1 (0-7); Lymphocytes % (manual) 6 (10.0-50.0); Monocytes % (manual) 7 (0-12)
[2022-12-15] MEDS: MORPHINE SULFATE INJ 2 MG/ml SYRG IV PRN (08:48)
[2022-12-15] MEDS: AZITHROMYCIN 500MG/ 250ML 250 ML IV SCH (10:12)
[2022-12-15] MEDS: ALPRAZolam 0.5 MG TAB PO SCH ×2 (10:12→22:07)
[2022-12-15] MEDS: ENOXAPARIN SOD 80 MG/0.8ML SYRINGE SC SCH ×2 (10:13→22:10)
[2022-12-15] MEDS: MULTIPLE VITAMIN TAB PO SCH (10:13)
[2022-12-15] MEDS: SERTRALINE HCL 50 MG TAB PO SCH (10:13)
[2022-12-15] MEDS ORDERED: POTASSIUM CHL 20MEQ/100ML 100 ML IV ONE (11:00)
[2022-12-15] MEDS ORDERED: VANCOMYCIN PER PHARMACY 0 MG IV SCH (11:00)
[2022-12-15] MEDS ORDERED: VANCOMYCIN 1GM/250ML 250 ML IV ONE (11:30)
[2022-12-15] MEDS: methylPREDNISolone SOD SUCC 40 MG/ML VL IV SCH ×2 (11:37→17:41)
[2022-12-15] MEDS: Ensure HIGH Protein Chocolate 8oz Bottle PO SCH ×3 (11:54→18:16)
[2022-12-15] MEDS: GABAPENTIN 300 MG CAP PO SCH (22:04)
[2022-12-15] MEDS: QUEtiapine FUMARATE 100 MG TAB PO SCH (22:09)
[2022-12-15] MEDS: CEFEPIME 2 GM in SODIUM CHL 0.9% 50 ML IV SCH (22:22)
[2022-12-15] MEDS: guaiFENesin 200 MG/10 ML UD GT PRN (22:24)
[2022-12-16] VITALS (30 sets, daily range): BP systolic 74–122; BP diastolic 31–58
[2022-12-16] MEDS: methylPREDNISolone SOD SUCC 40 MG/ML VL IV SCH ×5 (00:29→23:46)
[2022-12-16] MEDS: VANCOMYCIN 1GM/250ML 250 ML IV SCH ×2 (02:50→17:06)
[2022-12-16] MEDS: LORazepam 2MG/ML-1ML VIAL IV PRN ×3 (05:41→17:35)
[2022-12-16] MEDS: FUROSEMIDE 40 MG/4 ML VIAL IV SCH ×2 (05:52→17:06)
[2022-12-16 06:20] LABS: Hematocrit 21.6 % (36.0-46.0); Hemoglobin 7.2 g/dL (12.2-16.2); Red Cell Distribution Width 13.5 % (11.8-14.3); White Blood Cell 28.9 10^3/uL (4.4-10.8)
[2022-12-16 06:23] LABS: Mean Corpuscular Hemoglobin 30.5 pg (28.0-32.0); Mean Corpuscular Hgb Conc. 33.4 g/dL (32.0-36.0); Mean Corpuscular Volume 91.5 fL (80.0-100.0); Red Blood Cells 2.36 10^6/uL (4.0-5.20)
[2022-12-16 06:26] LABS: Basophils % (manual) 0 (0.0-2.0); Blast Cells 0; Metamyelocytes % 0; Myelocytes % 0; Promyelocytes % 0; Reactive Lymphocytes 0
[2022-12-16] MEDS: ALBUTEROL MEDNEB 2.5 mg/3ml NEB NEB SCH ×4 (06:31→18:42)
[2022-12-16 06:34] LABS: Calcium 8.1 mg/dL (8.5-10.1); Potassium 3.3 mmol/L (3.5-5.1)
[2022-12-16 06:36] LABS: BUN/Creatinine Ratio 68.8
[2022-12-16] MEDS: ACCU-CHEK COMFORT CURVE STRIP VI SCH ×4 (06:47→22:00)
[2022-12-16] MEDS: InsuLIN REG 1unit/0.01ml Soln (100units/ml) SC SCH ×4 (06:49→22:29)
[2022-12-16 07:42] LABS: Band Neutrophils % (manual) 7; Eosinophils % (manual) 2 (0-7); Lymphocytes % (manual) 5 (10.0-50.0); Monocytes % (manual) 6 (0-12)
[2022-12-16] MEDS: Ensure HIGH Protein Chocolate 8oz Bottle PO SCH ×3 (08:25→17:06)
[2022-12-16] MEDS: MORPHINE SULFATE INJ 2 MG/ml SYRG IV PRN ×3 (09:13→21:40)
[2022-12-16] MEDS: MULTIPLE VITAMIN TAB PO SCH (11:15)
[2022-12-16] MEDS: CEFEPIME 2 GM in SODIUM CHL 0.9% 50 ML IV SCH ×2 (11:15→21:43)
[2022-12-16] MEDS: SERTRALINE HCL 50 MG TAB PO SCH (11:16)
[2022-12-16] MEDS: ENOXAPARIN SOD 80 MG/0.8ML SYRINGE SC SCH ×2 (11:16→21:39)
[2022-12-16] MEDS: ALPRAZolam 0.5 MG TAB PO SCH ×2 (11:17→21:39)
[2022-12-16] MEDS: POTASSIUM CHL 20MEQ/100ML 100 ML IV SCH ×2 (14:16→17:03)
[2022-12-16] MEDS: QUEtiapine FUMARATE 100 MG TAB PO SCH (21:39)
[2022-12-16] MEDS: GABAPENTIN 300 MG CAP PO SCH (21:40)
[2022-12-17] VITALS (38 sets, daily range): BP systolic 68–113; BP diastolic 26–68
[2022-12-17] MEDS: ALBUTEROL MEDNEB 2.5 mg/3ml NEB NEB SCH ×6 (00:24→22:19)
[2022-12-17] MEDS: LORazepam 2MG/ML-1ML VIAL IV PRN ×7 (04:03→19:49)
[2022-12-17] MEDS: MORPHINE SULFATE INJ 2 MG/ml SYRG IV PRN ×5 (05:19→18:35)
[2022-12-17] MEDS: methylPREDNISolone SOD SUCC 40 MG/ML VL IV SCH ×3 (05:37→18:33)
[2022-12-17] MEDS: FUROSEMIDE 40 MG/4 ML VIAL IV SCH ×2 (05:39→18:34)
[2022-12-17] MEDS: ACCU-CHEK COMFORT CURVE STRIP VI SCH ×4 (06:41→22:08)
[2022-12-17] MEDS: InsuLIN REG 1unit/0.01ml Soln (100units/ml) SC SCH ×4 (06:41→22:08)
[2022-12-17 07:16] LABS: Hematocrit 20.7 % (36.0-46.0); Mean Corpuscular Hemoglobin 31.2 pg (28.0-32.0); Mean Corpuscular Hgb Conc. 33.5 g/dL (32.0-36.0); Mean Corpuscular Volume 93.2 fL (80.0-100.0); Red Blood Cells 2.22 10^6/uL (4.0-5.20); Red Cell Distribution Width 13.7 % (11.8-14.3)
[2022-12-17 07:37] LABS: Hemoglobin 6.9 g/dL (12.2-16.2); White Blood Cell 35.7 10^3/uL (4.4-10.8)
[2022-12-17 07:39] LABS: Basophils % (manual) 0 (0.0-2.0); Blast Cells 0; Metamyelocytes % 0; Myelocytes % 0; Promyelocytes % 0; Reactive Lymphocytes 0
[2022-12-17] MEDS: VANCOMYCIN 1GM/250ML 250 ML IV SCH ×2 (07:54→23:07)
[2022-12-17 08:23] LABS: Band Neutrophils % (manual) 3; Eosinophils % (manual) 2 (0-7); Lymphocytes % (manual) 9 (10.0-50.0); Monocytes % (manual) 1 (0-12)
[2022-12-17] MEDS: Ensure HIGH Protein Chocolate 8oz Bottle PO SCH ×3 (08:25→18:00)
[2022-12-17 08:26] LABS: Anion Gap 9 (5-15); BUN/Creatinine Ratio 57.1; Blood Urea Nitrogen 48 mg/dL (7-18); Calcium 8.5 mg/dL (8.5-10.1); Carbon Dioxide 32 mmol/L (21-32); Chloride 95 mmol/L (98-107); GFR African American 86 mL/min; GFR Non-African American 71 mL/min; Glucose 187 mg/dL (74-106); Potassium 3.7 mmol/L (3.5-5.1); Sodium 136 mmol/L (136-145)
[2022-12-17] MEDS: ALPRAZolam 0.5 MG TAB PO SCH ×2 (09:52→21:56)
[2022-12-17] MEDS: SERTRALINE HCL 50 MG TAB PO SCH (09:52)
[2022-12-17] MEDS: MULTIPLE VITAMIN TAB PO SCH (09:52)
[2022-12-17] MEDS: ENOXAPARIN SOD 80 MG/0.8ML SYRINGE SC SCH ×2 (09:52→22:09)
[2022-12-17] MEDS: CEFEPIME 2 GM in SODIUM CHL 0.9% 50 ML IV SCH ×2 (10:29→21:34)
[2022-12-17] MEDS: MICAFUNGIN SODIUM 100 MG in SODIUM CHL 0.9% 100 ML IV SCH (16:55)
[2022-12-17] MEDS: GABAPENTIN 300 MG CAP PO SCH (21:56)
[2022-12-17] MEDS: QUEtiapine FUMARATE 100 MG TAB PO SCH (21:56)
[2022-12-18] VITALS (22 sets, daily range): BP systolic 84–110; BP diastolic 44–77
[2022-12-18] MEDS: methylPREDNISolone SOD SUCC 40 MG/ML VL IV SCH ×2 (00:02→06:04)
[2022-12-18] MEDS: MORPHINE SULFATE INJ 2 MG/ml SYRG IV PRN ×4 (03:24→11:18)
[2022-12-18] MEDS: LORazepam 2MG/ML-1ML VIAL IV PRN ×4 (05:09→11:18)
[2022-12-18 05:49] LABS: Hematocrit 22.9 % (36.0-46.0); Hemoglobin 7.5 g/dL (12.2-16.2); Mean Corpuscular Hemoglobin 30.4 pg (28.0-32.0); Mean Corpuscular Hgb Conc. 32.8 g/dL (32.0-36.0); Mean Corpuscular Volume 92.5 fL (80.0-100.0); Red Blood Cells 2.48 10^6/uL (4.0-5.20); Red Cell Distribution Width 15.9 % (11.8-14.3)
[2022-12-18 05:51] LABS: Calcium 8.5 mg/dL (8.5-10.1); Potassium 3.6 mmol/L (3.5-5.1)
[2022-12-18 05:58] LABS: White Blood Cell 46.6 10^3/uL (4.4-10.8)
[2022-12-18 05:59] LABS: Basophils % (manual) 0 (0.0-2.0); Blast Cells 0; Eosinophils % (manual) 0 (0-7); Myelocytes % 0; Promyelocytes % 0; Reactive Lymphocytes 0
[2022-12-18] MEDS: FUROSEMIDE 40 MG/4 ML VIAL IV SCH (06:04)
[2022-12-18] MEDS: InsuLIN REG 1unit/0.01ml Soln (100units/ml) SC SCH (06:11)
[2022-12-18] MEDS: ACCU-CHEK COMFORT CURVE STRIP VI SCH (06:12)
[2022-12-18] MEDS: ALBUTEROL MEDNEB 2.5 mg/3ml NEB NEB SCH ×2 (07:09→09:59)
[2022-12-18 07:53] LABS: Band Neutrophils % (manual) 3; Lymphocytes % (manual) 11 (10.0-50.0); Metamyelocytes % 6; Monocytes % (manual) 4 (0-12)
[2022-12-18] MEDS: CEFEPIME 2 GM in SODIUM CHL 0.9% 50 ML IV SCH (08:28)
[2022-12-18] MEDS: Ensure HIGH Protein Chocolate 8oz Bottle PO SCH (08:32)
[2022-12-18] MEDS: ALPRAZolam 0.5 MG TAB PO SCH (09:34)
[2022-12-18] MEDS: SERTRALINE HCL 50 MG TAB PO SCH (09:34)
[2022-12-18] MEDS: MICAFUNGIN SODIUM 100 MG in SODIUM CHL 0.9% 100 ML IV SCH (09:35)
[2022-12-18] MEDS: MULTIPLE VITAMIN TAB PO SCH (09:35)
[2022-12-18] MEDS: ENOXAPARIN SOD 80 MG/0.8ML SYRINGE SC SCH (10:00)
== END 2022-12-18 19:29 | DRG 193 ==
LOC: EDBD 09:55 → ER 09:55 → TELE 15:37 → TELE-WESTW 22:12 → DOU IN ICU 12-06 20:40
PROVIDERS: ADMIT Internal Medicine; ATTEND Internal Medicine
PROC: 5A09357 Assistance with Respiratory Ventilation, Less than 24 Consecutive Hours, Continuous Positive Airway Pressure (ICD-10-PCS; 2022-12-03)
PROC: 5A09357 Assistance with Respiratory Ventilation, Less than 24 Consecutive Hours, Continuous Positive Airway Pressure (ICD-10-PCS; 2022-12-04)
PROC: 5A0935A Assistance with Respiratory Ventilation, Less than 24 Consecutive Hours, High Flow/Velocity Cannula (ICD-10-PCS; 2022-12-04)
PROC: 5A09357 Assistance with Respiratory Ventilation, Less than 24 Consecutive Hours, Continuous Positive Airway Pressure (ICD-10-PCS; 2022-12-05)
PROC: 5A0935A Assistance with Respiratory Ventilation, Less than 24 Consecutive Hours, High Flow/Velocity Cannula (ICD-10-PCS; 2022-12-05)
PROC: 5A09357 Assistance with Respiratory Ventilation, Less than 24 Consecutive Hours, Continuous Positive Airway Pressure (ICD-10-PCS; 2022-12-06)
PROC: 5A0935A Assistance with Respiratory Ventilation, Less than 24 Consecutive Hours, High Flow/Velocity Cannula (ICD-10-PCS; 2022-12-06)
PROC: 05HC33Z Insertion of Infusion Device into Left Basilic Vein, Percutaneous Approach (ICD-10-PCS; principal; 2022-12-07)
PROC: B54NZZA Ultrasonography of Left Upper Extremity Veins, Guidance (ICD-10-PCS; 2022-12-07)
PROC: 5A09357 Assistance with Respiratory Ventilation, Less than 24 Consecutive Hours, Continuous Positive Airway Pressure (ICD-10-PCS; 2022-12-07)
PROC: 5A0935A Assistance with Respiratory Ventilation, Less than 24 Consecutive Hours, High Flow/Velocity Cannula (ICD-10-PCS; 2022-12-07)
PROC: 30233N1 Transfusion of Nonautologous Red Blood Cells into Peripheral Vein, Percutaneous Approach (ICD-10-PCS; 2022-12-07)
PROC: 5A09357 Assistance with Respiratory Ventilation, Less than 24 Consecutive Hours, Continuous Positive Airway Pressure (ICD-10-PCS; 2022-12-08)
PROC: 5A0935A Assistance with Respiratory Ventilation, Less than 24 Consecutive Hours, High Flow/Velocity Cannula (ICD-10-PCS; 2022-12-08)
PROC: 5A09357 Assistance with Respiratory Ventilation, Less than 24 Consecutive Hours, Continuous Positive Airway Pressure (ICD-10-PCS; 2022-12-09)
PROC: 5A0935A Assistance with Respiratory Ventilation, Less than 24 Consecutive Hours, High Flow/Velocity Cannula (ICD-10-PCS; 2022-12-09)
PROC: 5A09357 Assistance with Respiratory Ventilation, Less than 24 Consecutive Hours, Continuous Positive Airway Pressure (ICD-10-PCS; 2022-12-10)
PROC: 5A0935A Assistance with Respiratory Ventilation, Less than 24 Consecutive Hours, High Flow/Velocity Cannula (ICD-10-PCS; 2022-12-10)
PROC: 5A09357 Assistance with Respiratory Ventilation, Less than 24 Consecutive Hours, Continuous Positive Airway Pressure (ICD-10-PCS; 2022-12-11)
PROC: 5A0935A Assistance with Respiratory Ventilation, Less than 24 Consecutive Hours, High Flow/Velocity Cannula (ICD-10-PCS; 2022-12-11)
PROC: 5A09357 Assistance with Respiratory Ventilation, Less than 24 Consecutive Hours, Continuous Positive Airway Pressure (ICD-10-PCS; 2022-12-12)
PROC: 5A0935A Assistance with Respiratory Ventilation, Less than 24 Consecutive Hours, High Flow/Velocity Cannula (ICD-10-PCS; 2022-12-12)
PROC: 5A09357 Assistance with Respiratory Ventilation, Less than 24 Consecutive Hours, Continuous Positive Airway Pressure (ICD-10-PCS; 2022-12-13)
PROC: 5A0935A Assistance with Respiratory Ventilation, Less than 24 Consecutive Hours, High Flow/Velocity Cannula (ICD-10-PCS; 2022-12-13)
PROC: 5A09357 Assistance with Respiratory Ventilation, Less than 24 Consecutive Hours, Continuous Positive Airway Pressure (ICD-10-PCS; 2022-12-14)
PROC: 5A0935A Assistance with Respiratory Ventilation, Less than 24 Consecutive Hours, High Flow/Velocity Cannula (ICD-10-PCS; 2022-12-14)
PROC: 5A09357 Assistance with Respiratory Ventilation, Less than 24 Consecutive Hours, Continuous Positive Airway Pressure (ICD-10-PCS; 2022-12-15)
PROC: 5A0935A Assistance with Respiratory Ventilation, Less than 24 Consecutive Hours, High Flow/Velocity Cannula (ICD-10-PCS; 2022-12-15)
PROC: 5A09357 Assistance with Respiratory Ventilation, Less than 24 Consecutive Hours, Continuous Positive Airway Pressure (ICD-10-PCS; 2022-12-16)
PROC: 5A0935A Assistance with Respiratory Ventilation, Less than 24 Consecutive Hours, High Flow/Velocity Cannula (ICD-10-PCS; 2022-12-16)
PROC: 5A09357 Assistance with Respiratory Ventilation, Less than 24 Consecutive Hours, Continuous Positive Airway Pressure (ICD-10-PCS; 2022-12-17)
PROC: 5A09357 Assistance with Respiratory Ventilation, Less than 24 Consecutive Hours, Continuous Positive Airway Pressure (ICD-10-PCS; 2022-12-18)
DX: J18.9 Pneumonia, unspecified organism (principal); J96.21 Acute and chronic respiratory failure with hypoxia; J44.1 Chronic obstructive pulmonary disease with (acute) exacerbation; J44.0 Chronic obstructive pulmonary disease with (acute) lower respiratory infection; E87.3 Alkalosis; E44.0 Moderate protein-calorie malnutrition; E66.01 Morbid (severe) obesity due to excess calories; Z66 Do not resuscitate; Z20.822 Contact with and (suspected) exposure to COVID-19; I50.9 Heart failure, unspecified; J84.10 Pulmonary fibrosis, unspecified; Z51.5 Encounter for palliative care; Z99.81 Dependence on supplemental oxygen; Z90.49 Acquired absence of other specified parts of digestive tract; Z68.38 Body mass index [BMI] 38.0-38.9, adult
CPT/HCPCS: 36415; 36600; 71045; 71275; 80048; 80053; 80202; 81001; 82805; 82962; 83735; 83880; 84484; 85007; 85025; 85027; 85379; 86606; 86612; 86635; 86698; 86850; 86900; 86901; 86920; 87040; 87070; 87081; 87205; 87278; 87426; 87804; 93005; 93306; 93970; 94640; 94660; 94762; 96365; 96367; 96375; 99291; A4615; G0378; J1100; J1815; J2248; J2543; J3480